=== PATIENT | male | born 1980 | race Caucasian/White ===

== ENCOUNTER 2024-08-04 10:13 | Outpatient (CLI) | payer OTHER, SELFPAY ==
--- NOTE | ~2024-08-04 | XR_ITS ---
XR ankle LT 2V 08/04/2024 10:29 Indication: Left ankle pain Procedure: 2 views left ankle Comparison: No prior studies for comparison. Findings: Ankle mortise intact. No fracture, subluxation or dislocation. No soft tissue abnormality. No foreign bodies. Impression: 1: No acute bone or joint abnormality. Reviewed, dictated and finalized at location [] Impression: 1: No acute bone or joint abnormality.
== END 2024-08-04 10:14 | disposition home or self-care (01) ==
LOC: GOSHIMG 10:13
PROVIDERS: PCP Nurse Practitioner; Visit Provider Nurse Practitioner
DX: M79.672 Pain in left foot (principal); M25.572 Pain in left ankle and joints of left foot
CPT/HCPCS: 73600; 73630

== ENCOUNTER 2024-09-07 08:02 | Outpatient (CLI) | payer OTHER, SELFPAY ==
--- OUTSIDE RECORDS SUMMARY | 2024-09-07 08:05 | XMS_ITS | Clinical Summary ---
Author Organization [facility] al Address [address] [place] [address] Care Team Providers Care Deposit Refund Clerk Name Role Phone Harjeet Dunn DO Primary Care Provider [phone] Oral Love DO Unavailable [phone] Dianne Duarte OD Unavailable Allergies No known active allergies Medications No known medications Active Problems Problem Noted Date Diagnosed Date Dermatitis of eyelid 08/10/2015 Lentigo 08/10/2015 Family History Medical History Relation Name Comments Melanoma Other Melanoma - (Add ed by TW Conv) Relation Name Status Comments Other Social History Tobacco Use Types Packs/Day Years Used Date Smoking Tobacco: Never Personal Safety Answer Date Recorded Getting School Help Needed Not on file 02/04 Sex and Gender Information Value Date Recorded Sex Assigned at Not on file Legal Sex 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 Gender Identity Not on file Sexual Orientation Not on file Obstetrics History Last Filed Vital Signs Vital Sign Reading Time Taken Comments Blood Pressure - - Pulse - - Temperature - - Respiratory Rate - - Oxygen Saturation - - Inhaled Oxygen Concentration - - Weight 77.2 kg (170 lb 3.1 oz) 01/24/2023 12:28 PM CENTRIFUGAL OPERATOR Height 182.9 cm (6' 0.01) 01/24/2023 12:[address] Body Mass Index 23.08 01/24/2023 12:28 PM CENTRIFUGAL OPERATOR Plan of Treatment Health Maintenance Due Date Last Done Comments Depression Screening 1981 Hepatitis C Screening 1981 DTaP/Tdap/Td Vaccine (1 - Tdap) 1992 Varicella Vaccines (1 of 2 - 13+ 2-dose series) 1994 Hepatitis B Screening 07/27/1999 Regular Well Visit/Exam 18-64 07/27/1999 Covid-19 Vaccine ( season) 2023 01/30/2022, 01/28/2021, 06/12/2020, Additional history exists Influenza Vaccine (Season Ended) 2024 01/30/2022, 01/04/2021, 12/22/2019, Additional history exists HPV Vaccines Aged Out No longer eligi ble based on patient's age to complete this topic Pneumococcal vaccine <65 Aged Out No longer eligible based on patient's age to complete this topic Insurance [facility] Address: [place] [address] Sangeetha Lara [address] [facility] Address: [address] [address] [place] [id number] Care Teams Deposit Refund Clerk Relationship Specialty Start Date End Date Harjeet Dunn DO PCP - General Internal Medicine 01/21/23 [place] [address] [facility] [address] [place] [address] Consulting Physician Physical Medicine and Rehabilitation 05/14/23 Dianne Duarte, ALICIA [address] [facility] [address] [place] [address] Primary Eye Care Provider Optometry 05/14/23
--- OUTSIDE RECORDS SUMMARY | 2024-09-07 08:05 | XMS_ITS | Referral Summary ---
Author Organization [facility] al Address [address] [place] [address] Care Team Providers Care Sandwich Maker Name Role Phone Harjeet Dunn DO Primary Care Provider [phone] Oral Love DO Unavailable Dianne Duarte OD Unavailable Allergies No known active allergies Medications No known medications Active Problems Problem Noted Date Diagnosed Date Dermatitis of eyelid 08/10/2015 Lentigo 08/10/2015 Social History Tobacco Use Types Packs/Day Years Used Date Smoking Tobacco: Never Personal Safety Answer Date Recorded Getting School Help Needed Not on file 02/04 Sex and Gender Information Value Date Recorded Sex Assigned at Not on file Legal Sex 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 Gender Identity Not on file Sexual Orientation Not on file Last Filed Vital Signs Vital Sign Reading Time Taken Comments Blood Pressure - - Pulse - - Temperature - - Respiratory Rate - - Oxygen Saturation - - Inhaled Oxygen Concentration - - Weight 77.2 kg (170 lb 3.1 oz) 01/24/2023 12:28 PM CERTIFIED MEDICAL DOSIMETRIST Height 182.9 cm (6' 0.01) 01/24/2023 12:[address] Body Mass Index 23.08 01/24/2023 12:28 PM CERTIFIED MEDICAL DOSIMETRIST Plan of Treatment Not on file Insurance [facility] CHO[facility]US [facility] CHO[facility] PL[facility] Care Teams Sandwich Maker Relationship Specialty Start Date End Date Harjeet Dunn DO PCP - General Internal Medicine 01/21/23 [place] [address] [place] [address] Consulting Physician Physical Medicine and Rehabilitation 05/14/23 [place] [address] [place] [address] Primary Eye Care Provider Optometry 05/14/23
--- OUTSIDE RECORDS SUMMARY | 2024-09-07 08:05 | XMS_ITS | Clinical Summary ---
Author Organization [facility] Address [address] [place] [address] Care Team Providers Care Heavy Truck Technician Name Role Phone Rashawn Mackenzie MD Primary Care Provider [phone] Source Comments [employer] [facility],non-owned Affiliates and Associated Physician Practices is amultiple site organization consisting of ambulatory clinics and hospital sitesin [place], [place], [place] and [place]. This disclosure is being madepursuant to the Care Everywhere program and may not contain all information available regarding this patient. Last updated 17.Continuent Allergies No known active allergies Medications * Be aware that medications may not be up to date on this document. Alwaysverify current medications with the patient. Loratadine-Pseu doephedrine (CLARITIN-D 12 HOUR PO) Active Fluticasone Propionate (FLONASE NA) Active montelukast (SINGULAIR) 10 MG tablet Take 10 mg by mouth at bedtime Active Social History Tobacco Use Types Packs/Day Years Used Date Smoking Tobacco: Never Assessed Sex and Gender Information Value Date Recorded Sex Assigned at Male 01/26/2023 11:17 AM BEVERAGE DISTILLER Legal Sex Male 7:47 AM BEVERAGE DISTILLER Gender Identity Not on file Sexual Orientation Not on file Last Filed Vital Signs Vital Sign Reading Time Taken Comments Blood Pressure 122/70 04/05/2016 11:52 AM BEVERAGE DISTILLER Pulse 86 04/05/2016 11:52 AM BEVERAGE DISTILLER Temperature 36.7 C (98.1 F) 04/05/2016 11:52 AM BEVERAGE DISTILLER Respiratory Rate - - Oxygen Saturation 97% 04/05/2016 11:52 AM BEVERAGE DISTILLER Inhaled Oxygen Concentration - - Weight 79.4 kg (175 lb) 04/05/2016 11:52 AM BEVERAGE DISTILLER Height 182.9 cm (6') 04/05/2016 11:52 AM BEVERAGE DISTILLER Body Mass Index 23.73 04/05/2016 11:52 AM BEVERAGE DISTILLER Plan of Treatment Health Maintenance Due Date Last Done Comments LIPID TESTING 1981 HIV SCREENING 1996 HEPATITIS C SCREENING 07/22/1999 DTAP/TDAP/TD VACCINES (1 - Tdap) 2000 HEPATITIS B VACCINE (1 of 3 - 19+ 3-dose series) 2000 HPV VACCINE (1 - 3-dose SCDM series) 2008 COVID-19 VACCINE (1 - 2023-2 5 season) 2023 DEPRESSION SCREENING 02/24/2024 INFLUENZA VACCINE (#1) 2024 ZOSTER VACCINE (1 of 2) 07/27/2031 HIB VACCINE Aged Out No longer eligi ble based on patient's age to complete this topic MENINGOCOCCAL (Group B) VACC INE SHARED DECISION-MAKING Aged Out No longer eligibl e based on patient's age to complete this topic MENINGOCOCCAL GROUPS A/C/Y/W VACCINE Aged Out No longer eligible b ased on patient's age to complete this topic PNEUMOCOCCAL VACCINE Aged Out No long er eligible based on patient's age to complete this topic Insurance [employer] Care Teams Heavy Truck Technician Relationship Specialty Start Date End Date Rashawn Mackenzie MD [address] [place] [address] PCP - General Family Medicine 04/05/16
--- OUTSIDE RECORDS SUMMARY | 2024-09-07 08:05 | XMS_ITS | Data Portability ---
Author Organization [employer], [facility] Address [address] [address] Care Team Providers Care Payment Analyst Name Role Phone Unavailable Primary Care Provider Unavailabl e Assessment No assessment recorded. Plan of Treatment Reminders Order Date Submit Date Provider Last Modified By Organization Details Last Modified Time Details Appointments None recorded. Lab None recorded. 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 Duarte ONLY 2018 019 DOUGLAS Not available 0 14:13:48 Procedures None recorded. Surgeries None recorded. Imaging None recorded. Medication Orders meclizine 25 mg tablet 2020 021 [facility][id number], [address], [id number], 1 15:52:57 scopolamine 1 mg over 3 days transdermal patch 2020 [facility]21 [facility][id number], [address], [id number], 1 23:14:53 Patient TargetsNo targets recorded. Patient InstructionsNo instructions recorded. Reason for Referral [place] Referral for Con cussion with no loss of consciousness Neuro-Optometry Eval and treat Refer to Dr. Duarte ONLY Referring Physician: Oral Love, [facility] Encounter Date: 02/22/2019 [place] Referral for Con cussion with no loss of consciousness post concussion Referring Physician: Oral Love, [facility] Encounter Date: 02/05/2022 Problems Name Problem SNOMED Code Status Onset Date Resolution Date Notes Provider Name and Address Organization Details Recorded Time Postconcussion syndrome [id number] Active Moetanisha Simon [employer] 4 12:15:07 Problem Notes None recorded. Procedures Surgical History Date Name Laterality Status Provider Name and Address Organization Details Recorded Time 8 Shoulder Surgery completed [facility] 12/21/2013 11:54:18 0 Other completed [employer] [facility] 12/21/2013 11:54:18 Imaging Results None recorded. Procedure Notes None recorded. Medical Equipment None Reported. Allergies Allergen ID Allergen Name Allergen Category Reaction Reaction Severity Criticality Documentation Date Start Date Code Code System Note Provider Name and Address Organization Details Recorded Time 79511 mold extract medicatio n Not available Not available Not available 12/21/2013 06933 8 RxNorm Moetanisha Jeter7 [employer] [facility] 4 11:48:10 Medications Name Sig Start Date Stop Date Status Note LastModified by Organization Details LastModified Time Zyrtec-D 5 mg-120 mg tablet,exte nded release 1 tablet every day by oral route. 02/06 completed Not Available Not Available Not Available azithromyci n 250 mg tablet active Not Available Not Available Not Available tramadol 50 mg tablet active Not Available Not Available No t Available meclizine 25 mg tablet TAKE 1 TABLET BY MOUTH EVERY DAY NEEDED active Not Available Not Available No t Available benzonatate 100 mg capsule TK 1 C PO Q 8 H PRF COUGH active Not Available Not Available No t Available Fluticasone Propionate (Nasal) 50 mcg/DOSE inhaler 2 sprays every day by nasal route. 02/06 completed Not Available Not Available Not Available gabapentin 300 mg capsule Take 1 capsule 3 times a day by oral route. 02/06 completed Not Available Not Available Not Available montelukast 10 mg tablet 1 tablet every day by oral route. 02/06 completed Not Available Not Available Not Available scopolamine 1 mg over 3 days transdermal patch APPLY 1 PATCH EXTERNALL Y TO THE SKIN EVERY 72 HOURS NEEDED active Not Available Not Available No t Available methylpredn isolone 4 mg tablets in a dose pack FPD active Not Available Not Available Not Available albuterol sulfate HFA 90 mcg/actuati on aerosol inhaler INL 2 PFS PO Q 4 H PRF DIFFICULT BREATHING active Not Available Not Available No t Available cefdinir 300 mg capsule 02/06 completed Not Available Not Available Not Available fluticasone propionate 50 mcg/actuati on nasal spray,suspe nsion 02/06 completed Not Available Not Available Not Available nortriptyli ne 50 mg capsule Take 1 capsule every day by oral route at bedtime. 02/06 completed Not Available Not Available Not Available Vitals Date Recorded Heart rate Systolic And Diastolic Provider Name and Address Organization Details Last Updated DateTime 03/05/2022 92 /min 140/90 mm[Hg] Deyanira [facility], [facility] 03/05/2022 11:22:28 Date Recorded Body height Body mass index (BMI) Body weight Heart rate Body temperature Systolic And Diastolic Provider Name and Address Organization Details Last Updated DateTime 182.88 cm 20.3 kg/m2 06585.8 6 g 89 /min 97.5 [degF] 136/86 mm[Hg] Ashlyn Hernandez [facility], [facility] 16:49:51 Date Recorded Body height Body mass index (BMI) Body weight Heart rate Systolic And Diastolic Provider Name and Address Organization Details Last Updated DateTime 05/16/2020 182.88 cm 20.3 kg/m2 36029.86 g 85 /min 119/75 mm[Hg] Mire[facility] Mckeon [facility], [facility] 16:18:49 Date Recorded Heart rate Systolic And Diastolic Provider Name and Address Organization Details Last Updated DateTime 02/05/2022 87 /min 132/80 mm[Hg] Ashlyn Hernandez [facility] [employer] [facility], [facility] 02/05/2022 16:35:39 Date Recorded Body height Body mass index (BMI) Body weight Heart rate Systolic And Diastolic Provider Name and Address Organization Details Last Updated DateTime 02/22/2019 182.88 cm 20.3 kg/m2 49711.86 g 67 /min 120/82 mm[Hg] Mirela Mckeon [employer] 9 11:34:12 Social History Question Answer Notes LastModified by Organizat ion Details LastModified Time Tobacco Smoking Status Never Smoker Moe Simon mora, [employer] 12/21/2013 11:54:02 Do You Have An Advance Directive? No Information not available 12/21/2013 Auto Related Injury? No Information not available 12/21/2013 What Is Your Level Of Caffeine Consumption? Moderate Information not available 12/21/2013 How Much Tobacco Do You Chew? None Information not available 12/21/2013 Diabetes No Information no t available 12/21/2013 What Type Of Diet Are You Following? REGULAR Information not available 12/21/2013 Education 4 Year College Information not available 12/21/2013 Who Is Your Employer? [employer] Information not available 12/21/2013 Which Of Your Hands Is Dominant? Right Information not available 12/21/2013 Hard Of Hearing Or Deaf In One Or Both Ears? No Information not available 12/21/2013 High Blood Pressure No Information not available 12/18/2015 High Cholesterol No Informat ion not available 12/21/2013 Single Or Multi-level Home/work? Single Level Work Information not available 12/21/2013 Legally Blind In One Or Both Eyes? No Information no t available 12/21/2013 Live Alone Or With Others? With Others Information not available 12/21/2013 Marital Status Informatio n not available 12/21/2013 How Many Children Do You Have? 0 Information not available 12/21/2013 Are There Any Occupational Health Risks Where You Work? 0 Information not available 12/21/2013 If Injured, Is Litigation Ongoing? No Information not available 12/21/2013 What Is Your Parents' Marital Status? Information not available 12/21/2013 Performs Monthly Self-breast Exam? No Information no t available 12/21/2013 Do You Use Protection During Sex? No Information not available 12/21/2013 Seat Belts Used Routinely Yes Information not available 12/21/2013 Are You Sexually Active? Yes Information not available 12/21/2013 Number Of Sexual Partners 1 Information not available 12/21/2013 Smoke Alarm In Home Yes Information not available 12/21/2013 How Much Tobacco Do You Smoke? No Information not available 12/21/2013 What Types Of Sporting Activities Do You Participate In? 0 Information not available 12/21/2013 General Stress Level Medium Information not available 02/09/2019 Do You Use Sunscreen Routinely? No Information not available 12/21/2013 How Many Years Have You Smoked Tobacco? 0 Information not available 12/21/2013 Work Related Injury? No Information not available 12/21/2013 Sex: Unknown Functional Status Question Answer Note LastModified by Organizat ion Details LastModified Time What is your level of alcohol consumption? Occasional Information not available 02/09/2019 Are you currently employed? Yes Information not available 12/21/2013 What is your occupation? Other Information not available 12/21/2013 What is your exercise level? Moderate Information not available 12/21/2013 Mental Status None recorded. Family History Relationship Description Onset Age of this Age Resolved Age Notes LastModified by Organization Details LastModified Time Maternal Grandfather Heart disease Not available 2013 11:53:35 Medical History Condition Response Coronary Artery Disease N HIV or AIDS N Gout N Kidney Stones N Hyperthyroidism N Head Trauma/Injury Y Hernia N Hypothyroidism N Depression N COPD N Blood Clots N Lung Disease N Pacemaker N Anxiety Disorder N Arthritis N Cancer N Stroke N Neck Injury N Leg or Foot Ulcers N High Cholesterol N Liver Disease N Rheumatoid Arthritis N Headaches Y Fibromyalgia N Kidney Disease N Heart Problems N Migraines N Thyroid Problems N Anemia N Multiple Sclerosis N Ulcers N Heart Attack (NE) N Diabetes N Bleeding Disorder N Seizures/Epilepsy N Tuberculosis N Urinary Tract Infection N Back Problems N Diverticulitis N Asthma Y Lupus N Peripheral Vascular Disease N Sleep Disorder N GERD/Reflux N Hepatitis N Aneurysm N Heart Disease N Pulmonary Embolism N Hypertension N Osteoporosis N Past Encounters Encounter ID Performer Location Encounter Start Date Encounter Closed Date Diagnosis/Indication Diagnosis SNOMED-CT Code Diagnosis ICD10 Code Diagnosis Note [id number] Ronen Stubbs MD [facility] [address] [place] [address] 12/21/2013 11:19:34 12/21/2013 14:41:48 Postconcussion syndrome 80316967 [id number] Ronen Stubbs MD [facility] [address] [place] [address] 01/30/2014 10:45:23 01/31/2014 11:20:49 [id number] Ronen Stubbs MD [facility] [address] [place] [address] 12/18/2015 10:54:32 12/18/2015 13:06:04 Postconcussion syndrome 45496403 F07.81 Neuralgia 34636294 M79.2 [id number] Ronen Stubbs MD [facility] [address] [place] [address] 01/30/2016 10:13:52 01/30/2016 13:52:08 [id number] Ronen Stubbs MD [facility] [address] [place] [address] 02/09/2019 08:58:15 02/09/2019 13:02:47 [id number] Sanju Love DO [facility] [address] [place] [address] 02/22/2019 10:57:48 02/24/2019 12:15:04 Concussion with no loss of consciousness 09134838 S06.0X0A I discussed with the patient today and based on his symptomato logy I do believe he has had some mild visual dysfunctio n related to the concussion or could even be related to a different sort of head injury or neurologic issue. It has been quite stable through time however so I do not fear anything progressiv e. The visual system has not been further evaluated. It does appear his symptoms are consistent with this being the cause of his symptoms at this time.Based on this I will go ahead and have him see a neuro optometris t for an evaluation and potential management of the visual component of this.I expect to see some improvemen t in the dizziness complaint but also likely somewhat in the headache complaint. We will then reevaluate and medication management for the pain complaint in his head and hypersensi tivity could be initiated. We will hold off for now as the patient does state it is not debilitati ng at this present moment.He will let me know if he would like to change our course on any of this otherwise we will see him back in 4-6 weeks. Visual disturbance 10989 001 H53.9 [id number] Sanju Love DO [facility] [address] [facility] [address] [place] [address] 04/19/2020 16:15:11 04/23/2020 10:03:59 Motion sickness 77675431 T75.3XXA Concussion with no loss of consciousness 78395195 S06.0X0D I discussed with the patient today and we discussed several different options. After our discussion we will start him on scopolamin e patches to try to help with the symptoms he is experienci ng. This hopefully will be able to allow him to acclimate to the up-and-bonnie n motion and hopefully get back to some form of running. I discussed this with the patient at length today. He is hopeful for this. We also can consider him for working with customer service trainer to gradually progressiv yara get him back into this activity. Patient will be no if he has any additional questions or concerns otherwise we will see him back in 4 weeks time if he has not had resolution of his symptoms. I did spend over 30 minutes total in evaluation of the patient, review of records and results, and/or the intake process. [id number] Sanju Love DO [facility] [address] [facility] [address] [place] [address] 05/16/2020 15:36:21 05/21/2020 09:49:08 Dizziness 553572537 R42 Concussion with no loss of consciousness 74136783 S06.0X0D I discussed with the patient today and we can discontinu e the scopolamin e as it is not helpful at this time. We can try meclizine but I am still not believing that we will get much relief. We will have him talk to his optometris t possibly patching one night to see if that helps with the activity so we can determine if this is even related to his visual system. It does appear that that is likely the case. Patient expresses understand ing of this and we will see him back after he tries these 2 interventi ons. I did spend over 20 minutes total in evaluation of the patient, review of records and results, and/or the intake process. [id number] Sanju Love, DO [facility] [address] [facility] [address] [place] [address] 02/05/2022 15:35:51 02/06/2022 11:05:40 Concussion with no loss of consciousness 05762553 S06.0X0D I am not seeing any evidence of any worsening at this time. I do agree that he should be seeing the neuro optometris t. I will submit a new referral if she is needing such at this time. If he is not seeing good benefit from her interventi ons we can certainly reevaluate . [id number] Snaju Love, DO [facility] [address] [facility] [address] [place] [address] 03/05/2022 11:02:30 03/05/2022 16:24:04 Concussion with no loss of consciousness 28567428 S06.0X0D I discussed with the patient today and he does understand that the glasses will need an adjustment period of several more weeks to really see the full effect. We also discussed several different options for possible return to increased activity level but also for some of the head pain that he feels becomes problemati c and limits him as well. We did talk about medication s such as Cymbalta as a potential avenue that could help with some of the mood component as well as the head pain component. The patient expresses understand ing of these options but would like to hold off on any medication for now. We will see him back on an as-needed basis Health Concerns Section Related Observation LastModified by Organization Beatris fleming LastModified Time None Recorded Concern Status LastModified by Organization Details LastModified Time None Recorded Advance Directives Directive N: Payers Insurance Date Sequence Insurance Name Policy Number Policy [place] Covered Member ID [place] Member ID Guarantor Name 03/02/2022 1 [facility] [id number] Igor Cristina Marengo [id number] Igor Cristina Marengo 04/20/2020 1 [place] [id number] Igor Cristina Marengo [id number] Igor Cristina Marengo 04/20/2020 1 [place] [id number] Igor Cristina Marengo [id number] Igor Cristina Marengo Notes Date Note Type Note Provider Name and Address Organization Details Recorded Time 02/22/2019 text/html Patient is a 38 year old male who is seen today for evaluation of his reported head injury that was said to have occurred 5 years ago when he hit his head on back of the desk and never really felt that he was having much difficulty with this but fully recovered.However, since that time he has had residual complaints of intermittent dizziness most notable with cardiac acceleration and deceleration, jogging, anything with head bouncing or rapid movement surrounding him.It does seem to be aggravated with visually taxing activities.He does associate this with a headachy sensation as well mostly in the back of his head These headaches have also been present intermittently through time and are described as essentially the whole head increased sensitivity to light touch with some pain being reproduced even from nonpainful stimuli.He will even feel this with something such as a shower or brushing his hair.He has not really tried much treatment for any of this other than physical therapy including vestibular therapy did seem to significantly help the balance and dizziness complaint early on.The last time.Therapy was 2 years ago.He has gradually decreased his activity level and stop doing things such as running due to the dizziness complaint.He still tries to stay quite active but does note again that with rapid head movements that [place] the [place] [address], [place], [address], [facility] 02/23/2019 23:00:17 04/19/2020 text/html Patient is a 39-year-old male who is known to me having been followed for his head injury 3 times. It has been over year since last time I have seen him. In general he is been doing fairly well. He continues to follow with outpatient neuro-optometry for visual complaints after his head injury. In general he feels that these interventions have been successful and he does utilize prism glasses. He only recently started having some increased difficulty as he was trying to get back into running and even with short distances of running he would start to feel dizzy and have some increased headaches. They really only seem to bother him a very mild amount during the actual run but it seemed more predominant the day after. This was associated with fatigue as well. He has also tried elliptical and this seems to bother him as well. It seems to be the up-and-down motion because a stationary bike does not bother him in the least. He denies any other symptoms that are [place] [address], [address], [facility] [employer], [employer] 04/21/2020 22:06:05 05/16/2020 text/html Patient is a 39-year-old male who is known to me having been followed for his head injury. Since last time I have seen him he did try the scopolamine patches to see if he would be able to run utilizing these. So far this has not worked. He still has his symptoms the day after. The dizziness and fatigue worsens after these activities. Otherwise he feels that [place] [address], [place], [address], [facility] [employer], [employer] 05/19/2020 21:57:36 02/05/2022 text/html Patient is a 41-year-old male who is known to me having been followed for his head injury. Since last time I have seen him he states that his eye pain has continued to be problematic. The dizziness and the double vision have worsened. He has been following with Dr. Dianne Duarte for some time. She recommended him return to see me as he has not been seen by me in some time. He is very frustrated by this as he had worked very hard to get back to his running and overall activity. He did have another mild injury to his head but the timing of this was somewhat earlier than the would be expected to be related to this. No other [place] [address], [place], [address], [facility] [employer], [facility] 02/08/2022 12:24:07 03/05/2022 text/html Patient is a 41-year-old male that is known to me having been followed for his head injury. Since last time I have seen him he did end up seeing Dr. Dianne Duarte and she gave him new glasses approximately 2 weeks ago. He is still adjusting to these. He is still very frustrated as he is unable to get back to his running and consistently being able to do his exercise program. No other new concerns today but he does state that this [place] [address] [address] [facility] [address] [facility],[address], [place], [address], [employer], [employer] [facility] [employer] 03/05/2022 15:41:04
[2024-09-07 18:41] LABS: Hematocrit 45.7 % (42.0-52.0); Hemoglobin 14.9 g/dL (14.0-18.0); Immature Granulocyte Percent A 0.2 % (0-0.5); Lymphocytes Absolute Auto 2.19 K/mm3 (0.9-3.2); Mean Corpuscular HGB Conc 32.6 g/dl (32-36); Mean Corpuscular Hemoglobin 30.0 pg (26-34); Mean Corpuscular Volume 92.0 fl (80-100); Nucleated Red Blood Cells Absolute Auto 0.000 K/mm3 (0.0-0.012); Nucleated Red Blood Cells Perc 0.0 % (0.0-0.2); Platelet Count Result 215 k/mm3 (150-375); Red Blood Count 4.97 M/mm3 (4.6-6.20); White Blood Count 5.5 K/mm3 (4.5-10.0)
[2024-09-07 18:53] LABS: Alanine Aminotransferase 48 U/L (6-50); Albumin Level 4.5 g/dL (3.5-5.1); Alkaline Phosphatase 46 U/L (38-126); Anion Gap 7 mmol/L (4-12); Aspartate Amino Transferase 71 U/L (17-59); Bilirubin,Total 0.6 mg/dL (0.2-1.3); Blood Urea Nitrogen 16 mg/dL (9-20); Calcium 9.5 mg/dL (8.4-10.2); Carbon Dioxide 29 mmol/L (22-30); Chloride 102 mmol/L (98-107); Cholesterol 230 mg/dL (0-200); Estimated Glomerular Filt Rate > 60; Glucose 83 mg/dL (65-110); HDL Direct 58 mg/dL; Potassium 4.2 mmol/L (3.4-5.0); Sodium 138 mmol/L (137-145); Total Protein 7.7 g/dL (6.3-8.2); Triglycerides 117 mg/dL (<150)
== END 2024-09-07 08:03 | disposition home or self-care (01) ==
LOC: ANHGOSHLAB 08:03
PROVIDERS: PCP Internal Medicine; Visit Provider Nurse Practitioner
DX: Z13.220 Encounter for screening for lipoid disorders (principal); Z13.29 Encounter for screening for other suspected endocrine disorder
CPT/HCPCS: 36415; 80053; 80061; 85025